=== PATIENT | female | born 2000 | race Caucasian/White ===

== ENCOUNTER 2021-09-06 15:16 | Emergency (ER) | payer SELFPAY ==
[~2021-09-06] VITALS: Ht 160 cm; Wt 55.3 kg
[2021-09-06] MEDS ORDERED: IBUPROFEN600 MG PO (17:25)
[2021-09-06] MEDS ORDERED: AMOX-CLAV 875-1 EACH PO (17:25)
== END 2021-09-06 17:31 | disposition home or self-care (01) ==
LOC: ED 15:16
DX: K08.89 Other specified disorders of teeth and supporting structures (principal)